=== PATIENT | male | born 1945 | race Caucasian/White ===

== ENCOUNTER 2019-08-15 16:50 | Emergency (ER) | payer MEDICARE, OTHER ==
[~2019-08-15] VITALS: Ht 188 cm; Wt 102.1 kg
[2019-08-15] MEDS ORDERED: IV NS 0.9% 1,000 ML BAG IV ONE (17:30)
[2019-08-15 17:43] LABS: BASOPHILS % (AUTO) 0.7 % (0.0-2.0); EOSINOPHILS % (AUTO) 1.2 % (0.0-6.0); HEMATOCRIT 37 % (39-51); HEMOGLOBIN 13.1 g/dL (13.5-17.5); LYMPHOCYTES # (AUTO) 1.4 /CMM (0.8-4.8); LYMPHOCYTES % (AUTO) 25.7 % (20.0-44.0); MEAN CORPUSCULAR HGB CONC 35 g/dl (31.0-36.0); MEAN CORPUSCULAR VOLUME 92 fL (80-96); MONOCYTES # (AUTO) 0.6 /CMM (0.1-1.30); MONOCYTES % (AUTO) 11.5 % (2.0-12.0); NEUTROPHILS # (AUTO) 3.2 /CMM (1.8-8.9); NEUTROPHILS % (AUTO) 60.9 % (43.0-81.0); PLATELET COUNT (AUTO) 172 /CMM (150-450); RED BLOOD CELL COUNT(AUTO) 4.07 MIL/uL (4.5-6.0); WHITE BLOOD COUNT (AUTO) 5.3 K/uL (4.3-11.0)
--- NOTE | 2019-08-15 17:56 | NUR ---
PATIENT AWAKE ALERT NON DISTRESS NOTED NO NAUSEA AND VOMITING CONTINUE TO MONITOR
[2019-08-15 18:33] LABS: ALBUMIN 3.8 g/dL (3.4-5.0); BILIRUBIN,DIRECT 0.1 mg/dL (0.0-0.2); BILIRUBIN,TOTAL 0.5 mg/dL (0.2-1.0); CALCIUM, SERUM 9.1 mg/dL (8.5-10.1); CREATININE 0.9 mg/dL (0.6-1.3); POTASSIUM 4.3 mmol/L (3.5-5.1); TOTAL PROTEIN, SERUM 7.4 g/dL (6.4-8.2)
[2019-08-15 19:10] VITALS: BP 126/78
--- NOTE | 2019-08-15 19:11 | NUR ---
REMOVED HEPLOCK RAC NOTED CATH INTACT NO EDEMA ,NO PAIN
--- NOTE | 2019-08-15 19:11 | NUR ---
Patient discharged to home in stable condition. Written and verbal after care instructions given. Patient verbalizes understanding of instruction.
== END 2019-08-15 19:10 | disposition home or self-care (01) ==
LOC: ER 17:01
DX: R19.7 Diarrhea, unspecified (principal); I48.91 Unspecified atrial fibrillation; K21.9 Gastro-esophageal reflux disease without esophagitis; F41.9 Anxiety disorder, unspecified; Z98.890 Other specified postprocedural states
CPT/HCPCS: 36415; 80048; 80076; 83690; 85025; 96360; 99283; J7030

== ENCOUNTER 2020-10-05 14:22 | Inpatient (IN) | payer MEDICARE, OTHER ==
[~2020-10-05] VITALS: Ht 188 cm; Wt 98.9 kg
--- NOTE | 2020-10-05 14:30 | NUR ---
PT BIBRA 99 from [facility] for hyperglycemia 510MG/DL in the field. upon arrival pts BS is 446. dr chaney notified. vs checked. luc on monitor. seen by
--- NOTE | 2020-10-05 14:46 | NUR ---
BS 446. dr. chaney notified.
[2020-10-05] MEDS ORDERED: INSULIN REGULAR, HUMAN 100 UNIT/ML 10 ML VIAL ONE (14:53)
[2020-10-05] MEDS ORDERED: IV NS 0.9% 1,000 ML IV ONE (15:00)
[2020-10-05] MEDS ORDERED: INSULIN REGULAR, HUMAN 100 UNIT/ML 10 ML VIAL SQ ONE (15:00)
[2020-10-05 15:06] LABS: ABG BASE EXCESS 0.1 mmol/L; ABG PCO2 40.9 mmHg (35.0-45.0); ABG PH 7.402 (7.350-7.450); ABG PO2 73.2 mmHg (75.0-100.0); AaDO2 27.6 mmHg; COHb 0.3 % (0.5-1.5); MetHb 0.1 % (0.0-1.5); O2Hb 93.6 % (94.0-97.0); SITE, ABG Left Radial; VENT MODE, BG ROOM AIR
[2020-10-05 15:25] LABS: BASOPHILS % (AUTO) 0.3 % (0.0-2.0); EOSINOPHILS % (AUTO) 0.5 % (0.0-6.0); HEMATOCRIT 43 % (39-51); HEMOGLOBIN 14.6 g/dL (13.5-17.5); LYMPHOCYTES # (AUTO) 1.2 /CMM (0.8-4.8); MEAN CORPUSCULAR HGB CONC 34 g/dl (31.0-36.0); MEAN CORPUSCULAR VOLUME 94 fL (80-96); MONOCYTES # (AUTO) 0.6 /CMM (0.1-1.30); NEUTROPHILS # (AUTO) 6.5 /CMM (1.8-8.9); NEUTROPHILS % (AUTO) 78.2 % (43.0-81.0); PLATELET COUNT (AUTO) 193 /CMM (150-450); RED BLOOD CELL COUNT(AUTO) 4.54 MIL/uL (4.5-6.0); WHITE BLOOD COUNT (AUTO) 8.3 K/uL (4.3-11.0)
--- NOTE | 2020-10-05 15:28 | NUR ---
CALLED [facility], PAGED CARLOS
[2020-10-05] MEDS ORDERED: DIAZ5TAB4 PO (15:45)
[2020-10-05] MEDS ORDERED: METO25TA4 PO (15:45)
[2020-10-05] MEDS ORDERED: FURO20TA4 PO (15:45)
[2020-10-05] MEDS ORDERED: AMIO100T4 PO (15:45)
[2020-10-05] MEDS ORDERED: PRAV40TA3 PO (15:45)
[2020-10-05] MEDS ORDERED: TAMS-12 PO (15:45)
[2020-10-05] MEDS ORDERED: FINA5TAB11 PO (15:45)
[2020-10-05] MEDS ORDERED: LOSA50TA39 PO (15:45)
[2020-10-05] MEDS ORDERED: DILT-2 PO (15:45)
[2020-10-05] MEDS ORDERED: PANT40TA49 PO (15:45)
[2020-10-05] MEDS ORDERED: AMLO2.5T4 PO (15:45)
[2020-10-05] MEDS ORDERED: BUDE3CAP8 PO (15:45)
[2020-10-05] MEDS ORDERED: APIX5TAB PO (15:45)
--- NOTE | 2020-10-05 15:45 | NUR ---
xander rechecked-[phone]. made aware.
[2020-10-05 15:50] LABS: CALCIUM, SERUM 9.2 mg/dL (8.5-10.1); CARBON DIOXIDE 29 mmol/L (21-32); CHLORIDE 96 mmol/L (98-107); CREATININE 1.2 mg/dL (0.6-1.3); POTASSIUM 4.5 mmol/L (3.5-5.1); SODIUM SERUM 133 mmol/L (136-145); UREA NITROGEN, BLOOD 26 mg/dL (7-18)
[2020-10-05 15:56] LABS: GLUCOSE 442 mg/dL (74-106)
--- NOTE | 2020-10-05 16:11 | NUR ---
PAGED CARLOS GIORDANO NP
[2020-10-05 16:30] VITALS: BP 170/90
--- NOTE | 2020-10-05 16:38 | NUR ---
called sound effects supervisor for bed assignment
--- NOTE | 2020-10-05 17:03 | NUR ---
CALLED NURSING SUP FOR BED, NOT AVAILABLE, WILL CALL BACK
--- NOTE | 2020-10-05 17:39 | NUR ---
bed 327-1
--- NOTE | 2020-10-05 18:08 | NUR ---
report given to trent guillaume at [facility]. pt transferred.
--- NOTE | 2020-10-05 18:25 | NUR ---
RECEIVED PATIENT FROM ER PATIENT IS A/O X 4 BP 170/90 HR 62 SPO2 99% TEMP 97.8F WITH NO SIGNS OF DISTRESS IN ROOM AIR. ORIENTED PATIENT TO HIS ROOM. NO COMPLAIN OF PAIN AT THIS TIME. SAFETY MEASURES ARE APPLIED, BED IS IN THE LOWEST POSITION, LOCKED, AND SIDE RAILS UP X 2. CALL LIGHT WITHIN REACH. WILL CONTINUE TO MONITOR.
[2020-10-05] MEDS ORDERED: DIAZEPAM 5 MG TABLET PO PRN (19:00)
[2020-10-05] MEDS ORDERED: DEXTROSE 50%-WATER 50 ML DISP.SYRIN IV PRN (19:00)
--- NOTE | 2020-10-05 19:00 | NUR ---
received in bed alert smiling and watching tv sitter at the bedside. when I went to touch the IV pump and hanging bags he yells "don't touch" repeating this and pushing me aside. Pt known to have anger and outbirsts behavior. when I approach him Im trying to be calm and move slowly as I speak to him
[2020-10-05] MEDS ORDERED: ZOLPIDEM TARTRATE 5 MG TABLET PO PRN (19:30)
[2020-10-05] MEDS ORDERED: IV NS 0.9% 1,000 ML IV PRN (19:30)
--- NOTE | 2020-10-05 19:30 | NUR ---
PATIENT IS A/O X 4 WITH NO SIGNS OF DISTRESS IN ROOM. IV L AC#18G. UNABLE TO DO BELONGING LIST WITH PATIENT, PATIENT WAS CURRENTLY STILL TALKING TO ERNESTINA GIORDANO. ENDORSED PATIENT TO SMOKING TOBACCO PACKER HAND NURSE.
[2020-10-05] MEDS: TAMSULOSIN 0.4 MG CAP.SR.24H PO SCH ×2 (21:34→21:41)
[2020-10-05] MEDS: AMLODIPINE BESYLATE 2.5 MG TABLET PO SCH ×2 (21:38→21:41)
[2020-10-05] MEDS: APIXABAN 5 MG TABLET PO SCH (21:40)
[2020-10-05] MEDS: BLOOD SUGAR DIAGNOSTIC 1 EACH STRIP VI SCH (21:44)
[2020-10-05] MEDS: *INSULIN REGULAR(HUMULIN R)HUM 100 UNIT/ML VIAL SQ PRN ×2 (21:55→23:39)
[2020-10-05] MEDS ORDERED: FINASTERIDE (5 MG) 5 MG TABLET PO SCH (22:00)
[2020-10-05] MEDS ORDERED: ATORVASTATIN 40 MG TABLET PO SCH (22:00)
--- NOTE | 2020-10-06 04:50 | NUR ---
CLOSING NOTES: ALERT AND ORIENTATED X4. NOTED HE ENJOYS CONVERSATION AND WILL TALK POLITICAL. WATCHING [employer]. AMBULATES TO THE BATHROOM, STATES HE GOES TO THE BATHROOM TO URINATE FREQUEMTLY AND HE TAKES FLOMAX. HE COMMENTED HE IS A NEWLY DIABETIC, HIS BLOOD SUGAR LAST NIGHT AT BEDTIME WAS 380 hs INSULIN COVERAGE GIVEN AND EXPLAINED TO THE PATIENT THAT THIS WAS CONSIDERED FAST ACTING INSULIN AND SIDE EFFECTS TO BE AWARE OF. TOLD HIM I WOULD BE CHECKING ON HIM Q 2HOURS OR MORE FREQ. D/T I NEEDED TO MAKE SURE HIS SUGARS DIDN'T DROP TO WERE WE WOULD BE CONCERED. HS SNACK SERVD CONSUMED 90% THRU THE NIGHT SKIN HAS BEEN WARM AND DRY, HE AROUSES EASILY. AMBIEN GIVEN 2AM FOR INSOMNIA AND EFFECTIVE.
[2020-10-06] MEDS: BLOOD SUGAR DIAGNOSTIC 1 EACH STRIP VI SCH ×2 (06:32→11:23)
[2020-10-06] MEDS: INSULIN REGULAR, HUMAN 100 UNIT/ML 3 ML VIAL SQ PRN ×2 (06:36→11:28)
--- NOTE | 2020-10-06 07:28 | NUR ---
MS RN OPENING NOTES BEDSIDE ENDORSEMENT DONE. PATIENT IS IN BED, AWAKE AND VERBALLY RESPONSIVE. A/O X4, ABLE TO MAKE NEEDS KNOWN. BREATHING EVEN AND UNLABORED, TOLERATING ROOM AIR. NOT IN ACUTE DISTRESS. ABLE TO EAT BREAKFAST AT THIS TIME. NO COMPLAINTS OF PAIN AT THE MOMENT. ENDORSED BY PREVIOUS SHIFT RN THAT BS IS 169, ISS COVERAGE. SAFETY PRECAUTIONS IN PLACE: BED LOCKED AND ON LOWEST POSITION, SR UP X2, CALL LIGHT W/IN REACH. WILL CONTINUE TO MONITOR.
[2020-10-06] MEDS ORDERED: HYDROCODONE/APAP 5/325MG TABLET PO PRN (07:30)
[2020-10-06] MEDS ORDERED: ACETAMINOPHEN 325 MG TABLET PO PRN (07:30)
[2020-10-06] MEDS ORDERED: MAGNESIUM HYDROXIDE 30 ML UDC PO PRN (07:30)
[2020-10-06] MEDS ORDERED: ONDANSETRON HCL/PF 4 MG/2 ML VIAL IVP PRN (07:30)
[2020-10-06] MEDS: APIXABAN 5 MG TABLET PO SCH (08:28)
[2020-10-06 08:42] VITALS: BP 157/87
[2020-10-06 08:48] LABS: CALCIUM, SERUM 8.6 mg/dL (8.5-10.1); CREATININE 0.8 mg/dL (0.6-1.3); PHOSPHORUS 3.9 mg/dL (2.5-4.9); POTASSIUM 4.2 mmol/L (3.5-5.1)
[2020-10-06] MEDS ORDERED: FUROSEMIDE 20 MG TABLET PO SCH (09:00)
[2020-10-06] MEDS ORDERED: DILTIAZEM HCL CD 120 MG PO SCH (09:00)
[2020-10-06] MEDS ORDERED: AMIODARONE HCL 200 MG TABLET PO SCH (09:00)
[2020-10-06] MEDS ORDERED: LOSARTAN POTASSIUM 50 MG TABLET PO SCH (09:00)
[2020-10-06] MEDS ORDERED: METOPROLOL SUCCINATE 25 MG TAB.SR.24H PO SCH (09:00)
[2020-10-06] MEDS ORDERED: PANTOPRAZOLE 40 MG TABLET.DR PO SCH (09:00)
[2020-10-06] MEDS ORDERED: METF-440 PO (09:56)
--- NOTE | 2020-10-06 11:59 | NUR ---
SALES DEPARTMENT MANAGER NOTES PATIENT WAS SEEN BY CARLOS CALLEJAS, TODAY W/ ORDER FOR DISCHARGE. MED SCRIPT COMPLETED BY DR. GIORDANO. PATIENT IS AWAKE AND VERBALLY RESPONSIVE, A/O X4 AND ABLE TO MAKE NEEDS KNOWN. DISCHARGE INSTRUCTIONS AND EDUCATION PROVIDED TO PATIENT AND REINFORCED EDUCATION REGARDING HYPERGLYCEMIA AND NEW ONSET DIABETES DIAGNOSIS. PATIENT QUESTIONS ANSWERED AND PROVIDED EDUCATION MATERIAL, VERBALIZED UNDERSTANDING. DISCHARGE FORM SIGNED. PATIENT BELONGINGS ACCOUNTED FOR AND BELONGINGS FORM SIGNED. IV LINE AND NAME ARMBAND REMOVED. NO SKIN ISSUES NOTED. ACCU-CHECK AC LUNCH TAKEN AND ADMINISTERED INSULIN PER SS, NO ADVERSE REACTIONS. ACCOMPANIED PATIENT TO THE [facility], PATIENT IS AMBULATORY W/ STABLE GAIT. PATIENT WAS PICKED UP BY [facility], VIA [facility]IVATE CAR. CHARGE NURSE AND MD AWARE OF DISCHARGE.
[2020-10-07] MEDS ORDERED: BUDESONIDE 3 MG CAP.SR.24H PO SCH (09:00)
== END 2020-10-06 12:00 | disposition home or self-care (01) | DRG 638 ==
LOC: ER 14:30 → TELE 17:47 → MED 20:00
PROVIDERS: ADMIT Nurse Practitioner Acute Care; ATTEND Nurse Practitioner Acute Care
DX: E11.65 Type 2 diabetes mellitus with hyperglycemia (principal); D68.59 Other primary thrombophilia; N17.9 Acute kidney failure, unspecified; E87.1 Hypo-osmolality and hyponatremia; E86.0 Dehydration; N40.0 Benign prostatic hyperplasia without lower urinary tract symptoms; E78.5 Hyperlipidemia, unspecified; I48.91 Unspecified atrial fibrillation; I10 Essential (primary) hypertension; F41.9 Anxiety disorder, unspecified; Z95.0 Presence of cardiac pacemaker; K21.9 Gastro-esophageal reflux disease without esophagitis; Z79.899 Other long term (current) drug therapy; Z79.01 Long term (current) use of anticoagulants; Z96.619 Presence of unspecified artificial shoulder joint; Z96.659 Presence of unspecified artificial knee joint
CPT/HCPCS: 36415; 36600; 71045-TC; 80048-TC; 80061-TC; 82010-TC; 82962-TC; 83735-TC; 84100-TC; 85025-TC; 87081-TC; C9803; G0378; J1815; J7030

== ENCOUNTER 2022-09-07 14:44 | Emergency (ER) | payer MEDICARE, OTHER ==
[~2022-09-07] VITALS: Ht 188 cm; Wt 97.1 kg
[~2022-09-07 14:44] MED LIST: AMIO100T4 PO; AMLO2.5T4 PO; APIX5TAB PO; BUDE3CAP8 PO; DIAZ5TAB4 PO; DILT-2 PO; FINA5TAB11 PO; FURO20TA4 PO; LOSA50TA39 PO; METF-440 PO; METO25TA4 PO; PANT40TA49 PO; PRAV40TA3 PO; TAMS-12 PO
--- NOTE | 2022-09-07 15:20 | NUR ---
CHAIN MORTISER OPERATOR AT BEDSIDE FOR XRAY
[2022-09-07] MEDS ORDERED: LIDOCAINE 1%-EPI 1:100,000 50 ML VIAL IJ ONE (15:30)
[2022-09-07 15:39] LABS: BASOPHILS % (AUTO) 0.5 % (0.0-2.0); EOSINOPHILS % (AUTO) 1.1 % (0.0-6.0); HEMATOCRIT 35 % (39-51); LYMPHOCYTES # (AUTO) 1.2 K/uL (0.8-4.8); LYMPHOCYTES % (AUTO) 16.7 % (20.0-44.0); MEAN CORPUSCULAR HGB CONC 34 g/dl (31.0-36.0); MEAN CORPUSCULAR VOLUME 94 fL (80-96); MONOCYTES # (AUTO) 0.7 K/uL (0.1-1.30); MONOCYTES % (AUTO) 9.4 % (2.0-12.0); NEUTROPHILS # (AUTO) 5.1 K/uL (1.8-8.9); NEUTROPHILS % (AUTO) 72.3 % (43.0-81.0); PLATELET COUNT (AUTO) 200 K/uL (150-450); RED BLOOD CELL COUNT(AUTO) 3.75 MIL/uL (4.5-6.0)
[2022-09-07] MEDS ORDERED: LIDOCAINE 1%-EPI 1:100,000 20 ML VIAL ONE (15:42)
[2022-09-07 16:08] LABS: CALCIUM, SERUM 9.1 mg/dL (8.5-10.1); CARBON DIOXIDE 28 mmol/L (21-32); CHLORIDE 105 mmol/L (98-107); CREATININE 1.1 mg/dL (0.6-1.3); GLUCOSE 118 mg/dL (74-106); POTASSIUM 4.3 mmol/L (3.5-5.1); SODIUM SERUM 142 mmol/L (136-145); UREA NITROGEN, BLOOD 23 mg/dL (7-18)
[2022-09-07 16:25] LABS: C-REACTIVE PROTEIN < 0.2 mg/dL (0.0-0.9)
[2022-09-07] MEDS ORDERED: CEPH500T PO (16:36)
--- NOTE | 2022-09-07 16:53 | NUR ---
Patient discharged to home in stable condition. Written and verbal after care instructions given. Patient verbalizes understanding of instruction. Wound care supplies and instructions provided to patient.
[2022-09-07 16:54] VITALS: BP 136/76
== END 2022-09-07 16:54 | disposition home or self-care (01) ==
LOC: ER 15:04
DX: L03.115 Cellulitis of right lower limb (principal); L02.415 Cutaneous abscess of right lower limb; I10 Essential (primary) hypertension; E11.9 Type 2 diabetes mellitus without complications; Z79.899 Other long term (current) drug therapy
CPT/HCPCS: 99284; 10060; 73590; 85025; 80048; 36415; 86140; J3490 ×2

== ENCOUNTER 2023-02-28 09:40 | Emergency (ER) | payer MEDICARE, OTHER ==
[~2023-02-28] VITALS: Ht 188 cm; Wt 97.5 kg
[~2023-02-28 09:40] MED LIST changes: +CEPH500T PO
--- NOTE | 2023-02-28 09:56 | NUR ---
EMT AT BEDSIDE FOR EKG
[2023-02-28] MEDS ORDERED: IV NS 0.9% 1,000 ML BAG IV ONE (10:00)
--- NOTE | 2023-02-28 10:12 | NUR ---
BLOOD SAMPLE OBTAINED SENT TO LAB
--- NOTE | 2023-02-28 10:12 | NUR ---
ESTABLISHED IV LINE 20 G LEFT AC
[2023-02-28 10:30] LABS: BASOPHILS % (AUTO) 0.6 % (0.0-2.0); EOSINOPHILS % (AUTO) 1.2 % (0.0-6.0); HEMATOCRIT 34 % (39-51); HEMOGLOBIN 11.7 g/dL (13.5-17.5); LYMPHOCYTES # (AUTO) 1.3 K/uL (0.8-4.8); LYMPHOCYTES % (AUTO) 18.2 % (20.0-44.0); MEAN CORPUSCULAR HGB CONC 34 g/dl (31.0-36.0); MEAN CORPUSCULAR VOLUME 92 fL (80-96); MONOCYTES # (AUTO) 0.8 K/uL (0.1-1.30); NEUTROPHILS # (AUTO) 4.9 K/uL (1.8-8.9); PLATELET COUNT (AUTO) 163 K/uL (150-450); RED BLOOD CELL COUNT(AUTO) 3.75 MIL/uL (4.5-6.0); WHITE BLOOD COUNT (AUTO) 7.1 K/uL (4.3-11.0)
[2023-02-28] MEDS ORDERED: AMIODARONE 450 MG in IV D5W 250 ML IV ONE (10:30)
[2023-02-28] MEDS ORDERED: AMIODARONE 150 MG in IV D5W 100 ML IV ONE (10:30)
[2023-02-28 10:55] LABS: ALANINE AMINOTRANSFERASE 56 U/L (12-78); ALBUMIN 3.3 g/dL (3.4-5.0); ALKALINE PHOSPHATASE 62 U/L (46-116); ASPARTATE AMINOTRANSFERASE 26 U/L (15-37); BILIRUBIN,DIRECT 0.2 mg/dL (0.0-0.2); BILIRUBIN,TOTAL 0.7 mg/dL (0.2-1.0); CALCIUM, SERUM 8.9 mg/dL (8.5-10.1); CARBON DIOXIDE 28 mmol/L (21-32); CHLORIDE 104 mmol/L (98-107); GLUCOSE 209 mg/dL (74-106); POTASSIUM 4.5 mmol/L (3.5-5.1); SODIUM SERUM 139 mmol/L (136-145); TOTAL PROTEIN, SERUM 6.6 g/dL (6.4-8.2); UREA NITROGEN, BLOOD 25 mg/dL (7-18)
--- NOTE | 2023-02-28 10:56 | NUR ---
CALLED DR YE VERONICA [phone]. WORKING TODAY AT [facility] [phone] DR. ANAYA [phone]. SPEAKING WITH DR. RODRIGUEZ.
--- NOTE | 2023-02-28 11:38 | NUR ---
CARDIOVERSION SET UP AT BEDSIDE , CARDIO PADS APPLIED. CALLED RT.
[2023-02-28] MEDS ORDERED: FENTANYL PF 100MCG/2ML AMPUL ONE (11:56)
[2023-02-28] MEDS ORDERED: PROPOFOL 20 ML IV ONE (11:57)
[2023-02-28] MEDS ORDERED: FENTANYL PF 100MCG/2ML AMPUL IV ONE (12:00)
[2023-02-28] MEDS ORDERED: PROPOFOL 1,000 MG/100 ML BOTTLE IV ONE (12:00)
--- NOTE | 2023-02-28 12:12 | NUR ---
Sync Cardioversion done once at 200 joules. EMD RN RT at bedside, patient on cardiac technologist and pads. patient is stable no signs and symptoms of distress. care continues for post sedation.
--- NOTE | 2023-02-28 12:45 | NUR ---
AMIODARONE DRIP DISCONTINUED PER MD ORDER.
--- NOTE | 2023-02-28 13:25 | NUR ---
Patient discharged to home in stable condition. Written and verbal after care instructions given. Patient verbalizes understanding of instruction.
--- NOTE | 2023-02-28 13:25 | NUR ---
IV removed. Catheter intact and site benign. Pressure and 4x4 applied to site. No bleeding noted.
[2023-02-28 13:26] VITALS: BP 131/81
== END 2023-02-28 13:27 | disposition home or self-care (01) ==
LOC: ER 10:08
DX: I48.92 Unspecified atrial flutter (principal); E11.65 Type 2 diabetes mellitus with hyperglycemia; E86.0 Dehydration; I10 Essential (primary) hypertension; Z98.890 Other specified postprocedural states; Z79.899 Other long term (current) drug therapy; Z91.040 Latex allergy status; Z91.013 Allergy to seafood
CPT/HCPCS: 99291; 92960; 96365; 71045; 96361; 96366; 99152; 85025; 80048; 80076; 36415; 84484; 85730; 82962; 93005 ×2; J2704; J3010; J7060; J7030; J0282 ×2; A4223; G0500

== ENCOUNTER 2024-02-12 09:40 | Emergency (ER) | payer MEDICARE, OTHER ==
[~2024-02-12] VITALS: Ht 188 cm; Wt 94.3 kg
[2024-02-12 10:27] VITALS: BP 158/83; TEMP 98.2; O2SAT 98
== END 2024-02-12 10:28 | disposition home or self-care (01) ==
LOC: ER 09:48
DX: H11.32 Conjunctival hemorrhage, left eye (principal); I10 Essential (primary) hypertension; I48.91 Unspecified atrial fibrillation; E11.9 Type 2 diabetes mellitus without complications; Z79.899 Other long term (current) drug therapy; Z91.040 Latex allergy status

== ENCOUNTER 2024-03-23 15:20 | Emergency (ER) | payer MEDICARE, OTHER ==
[~2024-03-23] VITALS: Ht 188 cm; Wt 93.0 kg
[2024-03-23] MEDS ORDERED: TDAP [DIPH/PERTUSSIS/TET] 0.5 ML VIAL IM ONE (16:28)
[2024-03-23] MEDS: TDAP [DIPH/PERTUSSIS/TET] 0.5 ML VIAL IM ONE (16:32)
[2024-03-23 17:08] VITALS: BP 135/83; TEMP 98.4; O2SAT 98
== END 2024-03-23 17:08 | disposition home or self-care (01) ==
LOC: ER 15:23
DX: S81.811A Laceration without foreign body, right lower leg, initial encounter (principal); I11.9 Hypertensive heart disease without heart failure; E11.9 Type 2 diabetes mellitus without complications; Z87.39 Personal history of other diseases of the musculoskeletal system and connective tissue; Z88.6 Allergy status to analgesic agent; Z91.013 Allergy to seafood; X58.XXXA Exposure to other specified factors, initial encounter; Y93.89 Activity, other specified; Y92.89 Other specified places as the place of occurrence of the external cause; Y99.8 Other external cause status
CPT/HCPCS: 12002; 90471; 90715; 99283; A6403

== ENCOUNTER 2024-08-15 10:53 | Emergency (ER) | payer MEDICARE, OTHER ==
[~2024-08-15] VITALS: Ht 188 cm; Wt 93.0 kg
[2024-08-15 11:14] VITALS: BP 132/73; TEMP 97.5
[2024-08-15] MEDS ORDERED: CLINDAMYCIN HCL 150 MG CAPSULE ONE (11:26)
[2024-08-15] MEDS ORDERED: IBUPROFEN 600 MG TABLET ONE (11:26)
[2024-08-15] MEDS ORDERED: CLIN300C12 PO (11:27)
[2024-08-15] MEDS: CLINDAMYCIN HCL 150 MG CAPSULE PO ONE (11:30)
[2024-08-15 11:31] VITALS: O2SAT 16
[2024-08-15] MEDS: IBUPROFEN 600 MG TABLET PO ONE (11:31)
== END 2024-08-15 11:32 | disposition home or self-care (01) ==
LOC: ER 10:56
DX: L03.032 Cellulitis of left toe (principal); I10 Essential (primary) hypertension; I48.91 Unspecified atrial fibrillation; E11.9 Type 2 diabetes mellitus without complications; Z79.84 Long term (current) use of oral hypoglycemic drugs; Z98.890 Other specified postprocedural states; Z79.899 Other long term (current) drug therapy; Z88.1 Allergy status to other antibiotic agents

== ENCOUNTER 2025-06-30 13:48 | Emergency (ER) | payer MEDICARE, OTHER ==
[~2025-06-30] VITALS: Ht 188 cm; Wt 98.0 kg
[~2025-06-30 13:48] MED LIST changes: +CLIN300C12 PO
[2025-06-30 15:37] VITALS: BP 137/84; TEMP 98.1; O2SAT 99
== END 2025-06-30 15:37 | disposition home or self-care (01) ==
LOC: ER 13:59
DX: S13.4XXA Sprain of ligaments of cervical spine, initial encounter (principal); S09.90XA Unspecified injury of head, initial encounter; I48.91 Unspecified atrial fibrillation; I10 Essential (primary) hypertension; E11.9 Type 2 diabetes mellitus without complications; Z79.01 Long term (current) use of anticoagulants; Z79.84 Long term (current) use of oral hypoglycemic drugs; Z79.899 Other long term (current) drug therapy; Z88.8 Allergy status to other drugs, medicaments and biological substances; Z95.0 Presence of cardiac pacemaker; Z96.659 Presence of unspecified artificial knee joint
CPT/HCPCS: 70450-TC; 72125-TC

== ENCOUNTER 2025-08-11 11:50 | Emergency (ER) | payer MEDICARE, OTHER ==
[~2025-08-11] VITALS: Ht 188 cm; Wt 95.3 kg
[2025-08-11] MEDS: IV LR 500 ML IV ONE (12:31)
[2025-08-11 12:33] LABS: PLATELET COUNT (AUTO) 195 K/uL (150-450); RED BLOOD CELL COUNT(AUTO) 3.77 MIL/uL (4.5-6.0); RED CELL DISTRIBUTION WIDTH 12.7 % (11.5-15.0); WHITE BLOOD COUNT (AUTO) 7.7 K/uL (4.3-11.0)
[2025-08-11 12:49] LABS: CALCIUM, SERUM 8.4 mg/dL (8.5-10.1); CREATININE 1.0 mg/dL (0.6-1.3); SODIUM SERUM 139.0 mmol/L (136-145); UREA NITROGEN, BLOOD 29.0 mg/dL (7-18)
[2025-08-11 12:51] LABS: PHOSPHORUS 3.8 mg/dL (2.5-4.9)
[2025-08-11 12:54] LABS: ASPARTATE AMINOTRANSFERASE 21.0 U/L (15-37); TOTAL PROTEIN, SERUM 6.5 g/dL (6.4-8.2)
[2025-08-11] MEDS ORDERED: AMOX-430 PO (13:44)
[2025-08-11] MEDS: PIPERACILLIN /TAZOBACTAM 3.375 G in IV D5W 50 ML IV ONE (13:59)
[2025-08-11 14:29] VITALS: BP 138/78; TEMP 97.9; O2SAT 98
== END 2025-08-11 14:33 | disposition home or self-care (01) ==
LOC: ER 11:54
DX: R19.7 Diarrhea, unspecified (principal); E11.9 Type 2 diabetes mellitus without complications; E78.5 Hyperlipidemia, unspecified; I10 Essential (primary) hypertension; Z79.01 Long term (current) use of anticoagulants; Z79.84 Long term (current) use of oral hypoglycemic drugs; Z79.899 Other long term (current) drug therapy; Z88.8 Allergy status to other drugs, medicaments and biological substances; Z91.013 Allergy to seafood; Z95.0 Presence of cardiac pacemaker; Z96.659 Presence of unspecified artificial knee joint
CPT/HCPCS: 99285; 74176; 96365; 96361; 85025; 80048; 87045; 87015; 83690; 80076; 83735; 84100; 36415; 87493; 87427 ×3; J2543; J7060; J7120

== ENCOUNTER 2025-09-25 15:27 | Emergency (ER) | payer MEDICARE, OTHER ==
[~2025-09-25] VITALS: Ht 188 cm; Wt 95.3 kg
[~2025-09-25 15:27] MED LIST changes: +AMOX-430 PO
[2025-09-25 15:35] VITALS: BP 134/72; TEMP 98; O2SAT 97
[2025-09-25] MEDS ORDERED: ERYT3.5O9 LEFTEYE (15:45)
== END 2025-09-25 15:51 | disposition home or self-care (01) ==
LOC: ER 15:27
DX: H00.014 Hordeolum externum left upper eyelid (principal); E11.9 Type 2 diabetes mellitus without complications; I10 Essential (primary) hypertension; Z79.01 Long term (current) use of anticoagulants; Z79.84 Long term (current) use of oral hypoglycemic drugs; Z88.8 Allergy status to other drugs, medicaments and biological substances; Z91.013 Allergy to seafood; Z79.899 Other long term (current) drug therapy